=== PATIENT | female | born 1985 | race Two or more races ===

== ENCOUNTER 2018-07-17 21:45 | Emergency (ER) | payer SELFPAY ==
[~2018-07-17] VITALS: Ht 157.5 cm; Wt 77.0 kg
[2018-07-18] MEDS ORDERED: ACETAMINOPHEN 500MG TABLET PO ONE (01:30)
[2018-07-18 04:22] VITALS: BP 105/68
== END 2018-07-18 04:24 | disposition home or self-care (01) ==
LOC: ER 21:45
DX: O99.89 Other specified diseases and conditions complicating pregnancy, childbirth and the puerperium (principal); R10.30 Lower abdominal pain, unspecified; Z3A.18 18 weeks gestation of pregnancy; Y09 Assault by unspecified means; Y93.9 Activity, unspecified; Y92.9 Unspecified place or not applicable
CPT/HCPCS: 76805; 81025; 99284

== ENCOUNTER 2018-10-21 15:01 | Emergency (ER) | payer MEDICAID ==
[~2018-10-21] VITALS: Ht 160 cm; Wt 160.0 kg
[2018-10-21 15:05] VITALS: BP 113/74
== END 2018-10-21 16:42 | disposition left against medical advice (07) ==
LOC: ER 15:22
DX: Z53.21 Procedure and treatment not carried out due to patient leaving prior to being seen by health care provider (principal)

== ENCOUNTER 2018-11-14 05:54 | Observation (INO) | payer MEDICAID ==
[~2018-11-14] VITALS: Ht 157.5 cm; Wt 82.6 kg
[2018-11-14] MEDS ORDERED: SODIUM CHLORIDE 0.9% 1,000 ML IV SCH (06:45)
[2018-11-14] MEDS ORDERED: ACETAMINOPHEN 500MG TABLET PO NR (06:45)
[2018-11-14 08:05] LABS: BASOPHILS % 0.5 % (0.0-2.0); EOSINOPHILS % 1.5 % (0.0-5.0); HEMATOCRIT. 30.5 % (36.0-48.0); HEMOGLOBIN. 10.5 g/dL (12.0-16.0); LYMPHOCYTES % 23.2 % (20.0-50.0); MEAN CORPUSCULAR HEMOGLOBIN 33.7 pg (28.0-32.0); MEAN CORPUSCULAR VOLUME 97.6 fL (81.0-99.0); MEAN PLATELET VOLUME 7.5 fl (7.4-10.4); MONOCYTES % 6.1 % (2.0-8.0); NEUTROPHILS % 68.7 % (40.0-76.0); PLATELET 203 x1000/uL (130-400); RED BLOOD CELL COUNT 3.13 mill/uL (4.2-5.4); RED CELL DISTRIBUTION WIDTH 13.7 % (11.6-14.6)
[2018-11-14 08:11] LABS: CHLORIDE 109 mEq/L (98-107)
[2018-11-14 08:23] LABS: D-DIMER 0.75 mg/L FEU (<0.50); PARTIAL THROMBOPLASTIN TIME 28.4 sec (23.4-31.0)
[2018-11-14 08:53] LABS: CLARITY URINE CLEAR (CLEAR); COLOR URINE YELLOW (YELLOW); KETONES URINE NEGATIVE (NEGATIVE); LEUKOCYTE ESTERASE URINE NEGATIVE (NEGATIVE); NITRITE URINE NEGATIVE (NEGATIVE); OCCULT BLOOD URINE NEGATIVE (NEGATIVE); PROTEIN URINE NEGATIVE (NEGATIVE); SPECIFIC GRAVITY URINE 1.007 (1.005-1.030)
== END 2018-11-14 10:00 | disposition home or self-care (01) ==
LOC: 8 EST LDRP 05:54
PROVIDERS: ADMIT Specialist; ATTEND Specialist
DX: O26.893 Other specified pregnancy related conditions, third trimester (principal); R51 Headache; R10.30 Lower abdominal pain, unspecified; Z3A.35 35 weeks gestation of pregnancy
CPT/HCPCS: 36415; 80053; 81003; 82248; 84550; 85025; 85379; 85384; 85610; 85730; 99281; G0378; 80076; 96360; 96361

== ENCOUNTER 2018-11-14 10:25 | Emergency (ER) | payer MEDICAID ==
[~2018-11-14] VITALS: Ht 157.5 cm; Wt 90.0 kg
[2018-11-14] MEDS ORDERED: ACETAMINOPHEN 325MG TABLET PO ONE (12:00)
[2018-11-14 12:18] VITALS: BP 110/63
== END 2018-11-14 12:20 | disposition home or self-care (01) ==
LOC: ER 10:48
DX: O26.893 Other specified pregnancy related conditions, third trimester (principal); R51 Headache; Z3A.32 32 weeks gestation of pregnancy
CPT/HCPCS: 99282

== ENCOUNTER 2020-05-15 04:55 | Emergency (ER) | payer MEDICAID, OTHER ==
[~2020-05-15] VITALS: Ht 157.5 cm; Wt 93.0 kg
[2020-05-15] MEDS ORDERED: OXYCODONE HCL/ACETAMINOPHEN 5/325MG TABLET PO ONE (06:45)
[2020-05-15 08:11] VITALS: BP 118/78
[2020-05-15] MEDS ORDERED: IBUP-2028 PO (09:30)
[2020-05-15] MEDS ORDERED: T3 PO (09:30)
== END 2020-05-15 10:54 | disposition home or self-care (01) ==
LOC: ER 04:55
DX: S05.11XA Contusion of eyeball and orbital tissues, right eye, initial encounter (principal); R51.9 Headache, unspecified; Y04.2XXA Assault by strike against or bumped into by another person, initial encounter; Y93.89 Activity, other specified; Y92.89 Other specified places as the place of occurrence of the external cause
CPT/HCPCS: 70486; 81025; 99285